=== PATIENT | male | born 1985 | race African-American/Black ===

== ENCOUNTER 2017-01-13 11:45 | Emergency (ER) | payer MEDICAID ==
[~2017-01-13] VITALS: Ht 182.9 cm; Wt 125.0 kg
[2017-01-13] MEDS ORDERED: IBUPROFEN 800 MG TABLET PO ONE (13:15)
[2017-01-13 13:25] VITALS: BP 125/84
== END 2017-01-13 13:57 | disposition home or self-care (01) ==
LOC: EMS 11:48
DX: S93.601A Unspecified sprain of right foot, initial encounter (principal); X58.XXXA Exposure to other specified factors, initial encounter; Y93.72 Activity, wrestling; Y92.89 Other specified places as the place of occurrence of the external cause; Y99.9 Unspecified external cause status
CPT/HCPCS: 29515; 99284

== ENCOUNTER 2019-01-21 10:40 | Emergency (ER) | payer MEDICAID ==
[~2019-01-21] VITALS: Ht 180.3 cm; Wt 134.6 kg
[2019-01-21] MEDS ORDERED: LIDOCAINE 5% TRANSDERMAL PATCH TD ONE (11:30)
[2019-01-21 12:43] VITALS: BP 155/85
== END 2019-01-21 13:01 | disposition home or self-care (01) ==
LOC: EMS 10:41
DX: S39.012A Strain of muscle, fascia and tendon of lower back, initial encounter (principal); S63.501A Unspecified sprain of right wrist, initial encounter; S43.402A Unspecified sprain of left shoulder joint, initial encounter; V29.9XXA Motorcycle rider (driver) (passenger) injured in unspecified traffic accident, initial encounter; Y93.55 Activity, bike riding; Y92.410 Unspecified street and highway as the place of occurrence of the external cause; Y99.8 Other external cause status

== ENCOUNTER 2020-04-09 07:50 | Emergency (ER) | payer MEDICAID ==
[~2020-04-09] VITALS: Ht 182.9 cm; Wt 127.3 kg
[2020-04-09 09:00] VITALS: BP 127/82
[2020-04-09 09:23] LABS: COVID AG,FIA SOURCE NASOPHARYNGEAL
== END 2020-04-09 09:14 | disposition home or self-care (01) ==
LOC: EMS 07:57
DX: U07.1 COVID-19 (principal)
CPT/HCPCS: 87426; 99283; C9803; U0003